=== PATIENT | female | born 1960 | race Caucasian/White ===

== ENCOUNTER 2024-10-25 01:18 | Outpatient (CLI) | payer OTHER, SELFPAY ==
--- NOTE | 2024-10-25 07:15 | DI.RAD_ITS ---
Exam(s) XR FOOT RT COMPLETE EXAM: XR FOOT RT COMPLETE CLINICAL HISTORY: Second MPJ pain,METATARSALGIA,RT FOOT,M77.41. TECHNIQUE: 2D digital imaging was performed of the right foot. Three images were obtained. AP, obl ique and lateral views were obtained. COMPARISON: No exams were available for comparison FINDINGS: BONES: No acute fracture is present. No bony destructive lesion is seen. There is fusion of the PIP j oint of the 2nd toe. There are hammertoe deformities of the 4th and 5th toes. There is a subluxatio n of the 3rd MTP joint. An orthopedic screws seen in the 1st metatarsal. There is a small enthesoph yte at the posterior calcaneus. There is a small plantar calcaneal spur. There is flatfoot deformit y. JOINTS: No dislocation present. At the 1st MTP joint, there is marked narrowing of the joint space wi th [id number]. Osteophytes are also present. SOFT TISSUE: There is soft tissue swelling of the forefoot. IMPRESSION: No acute abnormality. Postsurgical and arthritic changes seen in the right foot as described above. DATA REPOSITORY: RADIATION DOSE DELIVERED:
== END 2024-10-25 01:38 ==
LOC: DI 01:18
PROVIDERS: PCP Internal Medicine; Visit Provider Podiatrist
DX: M77.41 Metatarsalgia, right foot (principal); Z98.890 Other specified postprocedural states
CPT/HCPCS: 73630